=== PATIENT | male | born 1965 | race Caucasian/White ===

== ENCOUNTER 2017-08-15 15:27 | Emergency (ER) | payer BC ==
[~2017-08-15] VITALS: Ht 170.1 cm; Wt 63.5 kg
[~2017-08-15 15:27] MED LIST: CLARITIN10 MG PO; COLACE100 MG PO; LIDEX0.05% T; MEDROL DOSEPAK4 MG PO; NO DAILY MEDS; PERCOCET 325 MG1 TA2 PO; PREDNICOT20 MG PO; PREDNISONE10 MG PO; VIBRAMYCIN100 MG PO
[2017-08-15 15:47] LABS: BASO # 0.1 10*3/uL (0.0-0.1); BASO % 0.6 % (0.0-1.0); EOS # 0.1 10*3/uL (0.0-0.4); EOS % 1.2 % (1.0-4.0); HEMATOCRIT 43.1 % (42.0-52.0); HEMOGLOBIN 14.7 g/dl (14.0-18.0); LYMPH # 2.5 10*3/uL (1.3-4.4); LYMPH % 29.6 % (27.0-41.0); MEAN CELL VOLUME 92.3 fl (80.0-94.0); MEAN CORPUSCULAR HGB 31.5 pg (27.0-31.0); MEAN CORPUSCULAR HGB CONC 34.1 g/dl (33.0-37.0); MEAN PLATELET VOLUME 10.7 fl (9.6-12.3); MONO # 0.7 10*3/uL (0.1-1.0); MONO % 8.3 % (3.0-9.0); NEUT # 5.1 10*3/uL (2.3-7.9); NEUT % 60.2 % (47.0-73.0); PLATELET COUNT AUTOMATED 188 10*3/uL (130-400); RED BLOOD COUNT 4.67 10*6/uL (4.50-5.90); RED CELL DISTRI WIDTH 12.7 % (0-14.5); WHITE BLOOD COUNT 8.4 10*3/uL (4.8-10.8)
[2017-08-15 15:56] LABS: ACT PARTIAL THROMBO TIME 24.8 SECONDS (20.8-31.5); INTERNATIONAL NORM RATIO 0.9 (2.0-3.5)
[2017-08-15 16:03] LABS: ALBUMIN 4.2 gm/dl (3.1-4.5); ALKALINE PHOSPHATASE 91 U/L (45-117); BUN 23 mg/dl (7-24); CHLORIDE 105 mmol/L (98-107); CREATININE 1.15 mg/dL (0.70-1.30); POTASSIUM 3.8 mmol/L (3.5-5.1); SGOT/AST 23 IU/L (3-35); SGPT/ALT 30 U/L (12-78); SODIUM 138 mmol/L (136-145); TOTAL PROTEIN 7.6 gm/dL (6.4-8.2)
[2017-08-15 16:06] LABS: TROPONIN I < 0.015 ng/ml (<0.045)
== END 2017-08-15 17:15 ==
LOC: ED 15:27
PROVIDERS: Emergency Medicine
DX: R00.2 Palpitations (principal); Z79.899 Other long term (current) drug therapy; Z87.891 Personal history of nicotine dependence

== ENCOUNTER → 2017-08-28 | Outpatient (CLI) | payer BC ==
--- NOTE | ~2017-08-28 | ST ---
[place], [place] EXERCISE STRESS TEST REPORT NAME: [facility] #: [id number] UNIT #: [id number] ROOM: DOCTOR: KVNG BAI MD BIRTHDATE: [birth year] DOS: 08/28/2017 REFERRING PHYSICIAN: Dr. Friedman. INDICATION: Anterior chest pain. The patient underwent standard Manpreet protocol exercise treadmill stress testing. Baseline EKG is normal sinus, no ischemic changes. Baseline heart rate 76 beats per minute with blood pressure 120/72. The patient's peak heart rate was 156 with a blood pressure 140/70. The patient's peak heart rate of 156 represents 94% of maximum predicted. The patient exercised for a total of 10 minutes on the treadmill. The patient had no chest pain, no EKG changes, no arrhythmias. The patient reached the peak level of exertion of 10.7 mets. SUMMARY OF FINDINGS: 1. Negative exercise treadmill stress testing. 2. [place] Treadmill score 10 portending a very low risk prognosis for cardiac event. KVNG BAI MD CM:STRESS:EXERCISE STRESS TEST REPORT [id number] KVNG BAI MD
== END | disposition home or self-care (01) ==
LOC: CARD 03:08
DX: R07.89 Other chest pain (principal)

== ENCOUNTER 2019-08-14 11:37 | Emergency (ER) | payer BC ==
[~2019-08-14] VITALS: Ht 170.1 cm; Wt 63.5 kg
[2019-08-14] MEDS ORDERED: METHOCARBAMOL500 M1 PO (11:57)
[2019-08-14] MEDS ORDERED: NAPROSYN500 MG PO (11:57)
[2019-08-14] MEDS ORDERED: MEDROL DOSEPAK4 MG PO (11:57)
== END 2019-08-14 12:00 | disposition home or self-care (01) ==
LOC: ED 11:37
DX: S39.012A Strain of muscle, fascia and tendon of lower back, initial encounter (principal); J44.9 Chronic obstructive pulmonary disease, unspecified; X58.XXXA Exposure to other specified factors, initial encounter; Y93.89 Activity, other specified; Y92.096 Garden or yard of other non-institutional residence as the place of occurrence of the external cause; Y99.8 Other external cause status

== ENCOUNTER 2024-07-22 13:26 | Emergency (ER) | payer SELFPAY ==
[~2024-07-22] VITALS: Ht 170.1 cm; Wt 60.0 kg
[~2024-07-22 13:26] MED LIST changes: +METHOCARBAMOL500 M1 PO; +NAPROSYN500 MG PO
== END 2024-07-22 14:14 | disposition left against medical advice (07) ==
LOC: ED 13:26
DX: R05.9 Cough, unspecified (principal); R50.9 Fever, unspecified; Z53.21 Procedure and treatment not carried out due to patient leaving prior to being seen by health care provider

== ENCOUNTER 2024-11-23 17:29 | Emergency (ER) | payer SELFPAY ==
[~2024-11-23] VITALS: Ht 170.1 cm; Wt 61.2 kg
[2024-11-23] MEDS ORDERED: VIBRAMYCIN100 MG PO (17:57)
[2024-11-23] MEDS ORDERED: Doxycycline Hyclate 100 MG CAPSULE PO ONE (18:00)
== END 2024-11-23 18:02 | disposition home or self-care (01) ==
LOC: ED 17:29
DX: S80.862A Insect bite (nonvenomous), left lower leg, initial encounter (principal); L03.116 Cellulitis of left lower limb; J44.9 Chronic obstructive pulmonary disease, unspecified; Z90.5 Acquired absence of kidney; W57.XXXA Bitten or stung by nonvenomous insect and other nonvenomous arthropods, initial encounter; Y93.89 Activity, other specified; Y92.89 Other specified places as the place of occurrence of the external cause; Y99.8 Other external cause status